=== PATIENT | female | born 1995 | race American Indian/Alaskan Native ===

== ENCOUNTER 2021-11-13 01:32 | Emergency (ER) | payer SELFPAY ==
[2021-11-13] MEDS ORDERED: SODIUM CHLORIDE 0.9% 1000 ML 1,000 ML IV ONE (02:37)
[2021-11-13 03:12] LABS: INR 1.03 (0.87-1.13)
[2021-11-13 03:15] LABS: Hemoglobin 9.6 gm/dl (10.1-14.3); Mean Corpuscular HGB Conc 32 % (30-34); Mean Corpuscular Volume 82 fl (79-97); Red Blood Count 3.64 M/mm3 (3.65-5.03); Red Cell Distribution Width 16.2 % (13.2-15.2)
[2021-11-13 03:19] LABS: Platelet Count 402 K/mm3 (140-440)
[2021-11-13 03:31] LABS: Alanine Aminotransferase 10 units/L (7-56); Albumin 3.4 g/dL (3.9-5); BUN/Creatinine Ratio 13; Blood Urea Nitrogen 37 mg/dL (7-17); Calcium 8.8 mg/dL (8.4-10.2); Hemolysis Index 4
--- NOTE | 2021-11-13 03:34 | XRay Report ---
CHEST 1 VIEW INDICATION / CLINICAL INFORMATION: Weakness STUDY TIME: 0306 COMPARISON: None available. FINDINGS: SUPPORT DEVICES: None HEART / MEDIASTINUM: No significant abnormality. LUNGS / PLEURA: No significant acute pulmonary or pleural abnormality. No pneumothorax. ADDITIONAL FINDINGS: No significant additional findings. Signer Name: Ross Leal MD Signed: 11/13/2021 3:30 AM Workstation Name: [id number]
[2021-11-13 04:01] VITALS: BP 180/113
--- NOTE | 2021-11-13 04:18 | Emergency Department Report ---
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 -: Gradual, days(s) Radiation: non-radiation Worsens with: none Associated Symptoms: denies: denies other symptoms, confusion, chest pain, cough Treatments Prior to Arrival: none - Related Data Previous Rx's Medication Instructions Recorded Last Taken Type Insulin Glargine [Lantus VIAL] 10 unit SUB-Q QHS #30 vial 11/13/21 Unknown Rx Sodium Bicarbonate 325 mg PO DAILY #30 11/13/21 Unknown Rx amLODIPine 10 mg PO DAILY #30 tab 11/13/21 Unknown Rx carvediloL [Coreg] 6.25 mg PO BID #60 tablet 11/13/21 Unknown Rx Allergies Allergy/AdvReac Type Severity Reaction Status Date / Time No Known Allergies Allergy Unverified 11/13/21 01:39 ED Review of Systems ROS: Stated complaint: WEAKNESS Other details as noted in HPI Constitutional: denies: chills, fever Eyes: denies: eye pain, eye discharge, vision change ENT: denies: ear pain, throat pain Respiratory: denies: cough, shortness of breath, wheezing Cardiovascular: denies: chest pain, palpitations Endocrine: no symptoms reported Gastrointestinal: denies: abdominal pain, nausea, diarrhea Genitourinary: denies: urgency, dysuria, discharge Musculoskeletal: denies: back pain, joint swelling, arthralgia Skin: denies: rash, lesions Neurological: denies: headache, weakness, paresthesias Psychiatric: denies: anxiety, depression Hematological/Lymphatic: denies: easy bleeding, easy bruising ED Past Medical Hx - Past Medical History Previous Medical History?: Yes Hx Hypertension: Yes Hx CVA: Yes Hx Congestive Heart Failure: Yes Hx Diabetes: Yes - Surgical History Past Surgical History?: No - Social History Smoking Status: Unknown if ever smoked - Medications Home Medications: Home Medications Medication Instructions Recorded Confirmed Last Taken Type Insulin Glargine [Lantus VIAL] 10 unit SUB-Q QHS #30 vial 11/13/21 Unknown Rx Sodium Bicarbonate 325 mg PO DAILY #30 11/13/21 Unknown Rx amLODIPine 10 mg PO DAILY #30 tab 11/13/21 Unknown Rx carvediloL [Coreg] 6.25 mg PO BID #60 tablet 11/13/21 Unknown Rx ED Physical Exam - General Limitations: No Limitations General appearance: alert, in no apparent distress - Head Head exam: Present: atraumatic, normocephalic - Eye Eye exam: Present: normal appearance, other (legally blind ) - ENT ENT exam: Present: mucous membranes moist - Neck Neck exam: Present: normal inspection - Respiratory Respiratory exam: Present: normal lung sounds bilaterally. Absent: respiratory distress - Cardiovascular Cardiovascular Exam: Present: regular rate, normal rhythm. Absent: systolic murmur, diastolic murmur, rubs, gallop - GI/Abdominal GI/Abdominal exam: Present: soft, normal bowel sounds - Extremities Exam Extremities exam: Present: normal inspection - Back Exam Back exam: Present: normal inspection - Neurological Exam Neurological exam: Present: alert, oriented X3 - Psychiatric Psychiatric exam: Present: normal affect, normal mood - Skin Skin exam: Present: warm, dry, intact, normal color. Absent: rash ED Course Vital Signs 11/13/21 11/13/21 11/13/21 01:39 02:03 02:15 Temperature 98.2 F Pulse Rate 104 H 95 H Respiratory 18 22 12 Rate Blood Pressure 192/104 138/71 O2 Sat by Pulse 99 77 L Oximetry 11/13/21 11/13/21 11/13/21 02:31 02:45 03:01 Temperature Pulse Rate 95 H 108 H 87 Respiratory 19 14 19 Rate Blood Pressure 138/71 162/86 162/86 O2 Sat by Pulse Oximetry 11/13/21 11/13/21 11/13/21 03:15 03:31 03:45 Temperature Pulse Rate 94 H 92 H 96 H Respiratory 18 19 22 Rate Blood Pressure 170/101 170/101 180/113 O2 Sat by Pulse Oximetry ED Medical Decision Making - Lab Data Result diagrams: 11/13/21 02:44 11/13/21 02:44 - Radiology Data Radiology results: report reviewed, image reviewed - Medical Decision Making will refill her for 1 month untill she contacts her doctor in [place] Critical care attestation.: If time is entered above; I have spent that time in minutes in the direct care of this critically ill patient, excluding procedure time. ED Disposition Clinical Impression: Uncontrolled hypertension, Medication refill Disposition: HOME / SELF CARE / HOMELESS Is pt being admited?: No Does the pt Need Aspirin: No Condition: Stable Instructions: Hypertension (ED), Hypertension, Adult, [id number] Prescriptions: Insulin Glargine [Lantus VIAL] 10 unit SUB-Q QHS #30 vial amLODIPine 10 mg PO DAILY #30 tab carvediloL [Coreg] 6.25 mg PO BID #60 tablet Sodium Bicarbonate 325 mg PO DAILY #30
[2021-11-13 04:58] LABS: Basophils % (Manual) 0 % (0.0-1.8); Platelet Estimate Consistent w Auto; Total Cells Counted 100
--- NOTE | 2021-11-13 10:58 | Electrocardiograph Report ---
[facility] Test Date: 2021-11-13 Test Time: 02:50:39 Pat Name: TYLOR ROSALES Department: Room: Gender: F Advertising Executive: LASHANDA : 1995 Requested By: YASMIN VELAZQUEZ Order Number: [id number] Reading MD: Gary Santiago Measurements Intervals [place] Rate: 87 P: 10 OR: 137 QRS: 53 QRSD: 78 T: 27 QT: 365 QTc: 439 Interpretive Statements Sinus rhythm Low voltage, precordial leads No previous ECG available for comparison Electronically Signed On 11-13-2021 10:57:55 EDT by Gary Santiago
== END 2021-11-13 06:09 | disposition home or self-care (01) ==
LOC: ED 01:32
DX: I11.0 Hypertensive heart disease with heart failure (principal); Z76.0 Encounter for issue of repeat prescription; I15.0 Renovascular hypertension; E11.9 Type 2 diabetes mellitus without complications; Z86.73 Personal history of transient ischemic attack (TIA), and cerebral infarction without residual deficits
CPT/HCPCS: 36415; 71045; 80053; 82550; 83735; 84443; 84484; 85007; 85025; 85610; 93005; 96360; 99284; J7030